=== PATIENT | female | born 1950 | race African-American/Black ===

== ENCOUNTER 2017-06-08 12:42 | Emergency (ER) | payer MEDICAID ==
[~2017-06-08] VITALS: Ht 160 cm; Wt 72.6 kg
[2017-06-08 12:45] VITALS: BP 149/68
--- NOTE | 2017-06-08 13:09 | Emergency Room Report ---
History of Present Illness General Chief Complaint: Dyspnea/Respdistress Source: Patient Present Illness HPI 66 YO Female presents to the ED c/o dry cough and chest congestion x 1 week. Patient reports high-pitched cough with intermittent wheezing. Patient states that she is a current smoker and she has been diagnosed with bronchitis in the past. Patient describes 7/10 in severity generalized rib cage pain that is on both the left and right sides radiating towards the back is exacerbated when she is coughing. Patient states that at one point she was even on the read the once daily. Patient states that she needs a refill of albuterol. Patient reports chills she denies fevers. She reports increased mucus. He denies lower extremity swelling, cardiac history, or significant past medical history such as hypertension, diabetes or hyperlipidemia. Denies high fevers, lethargy, neck stiffness, irritability, dehydration, N/V/D. Denies Palpitations, LOC, AMS , seizures, paresthesias, or changes in Hearing or vision, no Sudden severe MCGILL. Allergies: Coded Allergies: No Known Allergies (Unverified , 06/08/17) Patient History Past Medical History: see triage record Past Surgical History: none Pertinent Family History: none Last Menstrual Period: Post Now: No Immunizations: UTD Reviewed Nursing Documentation: PMH: Agreed, PSxH: Agreed Nursing Documentation-PMH Past Medical History: No Stated History Review of Systems All Other Systems: negative except mentioned in HPI Physical Exam Vital Signs Date Time Temp Pulse Resp B/P (MAP) Pulse Ox O2 Delivery O2 Flow Rate FiO2 06/08/17 12:45 98.6 90 20 149/68 98 Room Air Sp02 EP Interpretation: reviewed, normal General Appearance: no apparent distress, alert, GCS 15, non-toxic Head: normocephalic, atraumatic Eyes: bilateral eye normal inspection, bilateral eye PERRL ENT: hearing grossly normal, normal voice Neck: full range of motion Respiratory: lungs clear, normal breath sounds, no accessory muscle use, speaking full sentences, wheezing - expiratory wheezes, other - chest tenderness is illicited with palpation. Cardiovascular #1: regular rate, rhythm, no edema, normal capillary refill Rectal: deferred Genitourinary: normal inspection Musculoskeletal: back normal, gait/station normal, normal range of motion, non- tender Neurologic: alert, oriented x3, responsive, motor strength/tone normal, sensory intact, speech normal, grossly normal Psychiatric: judgement/insight normal Skin: normal color, no rash, warm/dry, well hydrated Lymphatic: no adenopathy Medical Decision Making PA Attestation Dr. June is my supervising Physician whom patient management has been discussed with. Diagnostic Impression: Primary Impression: Bronchitis ER Course 66 YO Female presents to the ED c/o dry cough and chest congestion x 1 week. Patient reports high-pitched cough with intermittent wheezing. Patient states that she is a current smoker and she has been diagnosed with bronchitis in the past. Patient describes 7/10 in severity generalized rib cage pain that is on both the left and right sides radiating towards the back is exacerbated when she is coughing. Patient states that at one point she was even on the read the once daily. Patient states that she needs a refill of albuterol. Patient reports chills she denies fevers. She reports increased mucus. He denies lower extremity swelling, cardiac history, or significant past medical history such as hypertension, diabetes or hyperlipidemia. Denies high fevers, lethargy, neck stiffness, irritability, dehydration, N/V/D. Denies Palpitations, LOC, AMS , seizures, paresthesias, or changes in Hearing or vision, no Sudden severe MCGILL. Ddx considered but are not limited to URI, pneumonia, PE, strep pharyngitis, meningitis, Bronchitis, CHF just to name a few. Vital signs: Pt.is afebrile VS are WNL H&PE are most consistent with bronchitis, no cardiac RF's and CP is reproducible with palpation. ORDERS: CXR: WNL, no acute disease . ED INTERVENTIONS: -Duo Neb - Albuterol Neb DISCHARGE: At this time pt. is stable for d/c to home. Will provide printed patient care instructions, and any necessary prescriptions. Care plan and follow up instructions have been discussed with the patient prior to discharge. Chest X-Ray Diagnostic Results Chest X-Ray Diagnostic Results : Chest X-Ray Ordered: Yes # of Views/Limited/Complete: 1 View Indication: Shortness of Breath EP Interpretation: Yes PA Xray: Interpretation reviewed, by supervising MD, and agrees with findings. Interpretation: no consolidation, no effusion, no pneumothorax, no acute cardiopulmonary disease Impression: No acute disease Electronically Signed by: Fabiola Cameron PA-C Last Vital Signs Date Time Temp Pulse Resp B/P (MAP) Pulse Ox O2 Delivery O2 Flow Rate FiO2 06/08/17 12:47 90 20 Room Air 06/08/17 12:45 98.6 149/68 98 Disposition: HOME, SELF-CARE Condition: Stable Scripts Guaifenesin (Guaifenesin) 1,200 Mg Tab.er.12h 1200 MG PO BID, #20 TAB Prov: Fabiola Cameron 06/08/17 Prednisone* (PREDNISONE*) 20 Mg Tablet 40 MG ORAL DAILY for 5 Days, #10 TAB Prov: Fabiola Cameron 06/08/17 Codeine/Promethazine Hcl* (PROMETHAZINE-CODEINE SYRUP*) 118 Ml Syrup 5 ML ORAL Q6H Y for For Cough, #118 ML 0 Refills Prov: Fabiola Cameron 06/08/17 Albuterol Sulfate* (ALBUTEROL SULFATE MDI*) 8.5 Gm Hfa.aer.ad 2 PUFF INH Q3H, #1 INH 0 Refills Prov: Fabiola Cameron 06/08/17 Patient Instructions: Acute Bronchitis Additional Instructions: Take medications as directed. Follow up with a Primary Care Provider in 3-5 days, even if your symptoms have resolved. --Please review list of primary care clinics, if you do not already have a primary care provider Return sooner to ED if new symptoms occur, or current symptoms become worse. Do not drink alcohol, drive, or operate heavy machinery while taking Cough Syrup as this may cause drowsiness. - Please note that this Emergency Department Report was dictated using [employer] cleaner technology software, occasionally this can lead to erroneous entry secondary to interpretation by the dictation equipment. Fabiola Cameron Jun 08, 2017 13:09
[2017-06-08] MEDS ORDERED: ALBUTEROL SULF8.5 GM INH (13:20)
[2017-06-08] MEDS ORDERED: Albuterol ud Inhalation HHN ONE ×2 (13:30→14:30)
[2017-06-08] MEDS ORDERED: Ipratropium 0.02% Inh Soln 2.5ml UD HHN ONE (13:30)
[2017-06-08] MEDS ORDERED: PROMETHAZINE-C118 M1 ORAL (14:46)
[2017-06-08] MEDS ORDERED: PREDNISONE20 MG ORAL (14:46)
[2017-06-08] MEDS ORDERED: GUAIFENESIN1200 MG PO (14:46)
--- NOTE | 2017-06-08 14:46 | Diagnostic Imaging Report ---
Indication: Chest pain Technique: XRAY Chest 1v Comparison: None Findings: Heart is within the upper limits for normal size. Mediastinal contours are sharp. Atherosclerotic calcifications noted in the aortic arch. There is slight haziness of the bilateral lower lungs which is thought to be related to attenuation from overlying breast tissue and vascular crowding at the bases. There is no definite focal airspace consolidation. No pleural effusion. No pneumothorax. No acute osseous abnormality seen. Impression: No radiographic evidence of acute cardiopulmonary disease.
[2017-06-08 15:05] VITALS: BP 133/75
== END 2017-06-08 15:05 | disposition home or self-care (01) ==
LOC: EMR 15:02
DX: J40 Bronchitis, not specified as acute or chronic (principal)
CPT/HCPCS: 71045; 94640; 94664; 99284

== ENCOUNTER 2019-06-05 15:51 | Emergency (ER) | payer BC, MEDICARE ==
[~2019-06-05] VITALS: Ht 160 cm; Wt 72.6 kg
[~2019-06-05 15:51] MED LIST: ALBUTEROL SULF8.5 GM INH; GUAIFENESIN1200 MG PO; PREDNISONE20 MG ORAL; PROMETHAZINE-C118 M1 ORAL
[2019-06-05 16:30] VITALS: BP 155/82
[2019-06-05] MEDS ORDERED: Albuterol/Ipratropium 3ml neb HHN ONE ×2 (16:30→17:45)
--- NOTE | 2019-06-05 18:00 | Emergency Room Report ---
History of Present Illness General Chief Complaint: Dyspnea/Respdistress Source: Patient Present Illness HPI 68 YO female presents to the ED c/o 01/06 in severity cough and wheezing x 4 days, Pt. has a hx of COPD, and ran out of her inhaler at home. She reports increase in sputum production she reports chills but denies fevers. Patient states she did not receive this years flu vaccination. Patient denies recent travel or ill contacts. Patient denies sore throat, nasal congestion, rhinorrhea, neck pain/stiffness or headache. Patient denies chest pain or palpitations. Allergies: Coded Allergies: No Known Allergies (Unverified , 06/08/17) Patient History Past Medical History: see triage record Past Surgical History: none Pertinent Family History: none Last Menstrual Period: na Now: No Reviewed Nursing Documentation: PMH: Agreed; PSxH: Agreed Nursing Documentation-PMH Past Medical History: No History, Except For Hx COPD: Yes Review of Systems All Other Systems: negative except mentioned in HPI Physical Exam Vital Signs Date Time Temp Pulse Resp B/P (MAP) Pulse Ox O2 Delivery O2 Flow Rate FiO2 06/05/19 16:06 98.1 75 20 160/81 (107) 97 Room Air 06/05/19 16:34 21 Sp02 EP Interpretation: reviewed, normal General Appearance: no apparent distress, alert, GCS 15, non-toxic Head: normocephalic, atraumatic Eyes: bilateral eye normal inspection, bilateral eye PERRL ENT: hearing grossly normal, normal pharynx, normal voice, uvula midline, moist mucus membranes Neck: full range of motion, no meningismus Respiratory: normal breath sounds, no respiratory distress, no accessory muscle use, speaking full sentences, wheezing, expiration Cardiovascular #1: regular rate, rhythm, no edema Musculoskeletal: normal range of motion, gait/station normal, non-tender Neurologic: alert, motor strength/tone normal, oriented x3, sensory intact, responsive, speech normal Psychiatric: judgement/insight normal Skin: normal color Lymphatic: no adenopathy Medical Decision Making PA Attestation Dr. Mesa is my supervising Physician whom patient management has been discussed with. Diagnostic Impression: Primary Impression: COPD with exacerbation ER Course 68 YO female presents to the ED c/o 01/06 in severity cough and wheezing x 4 days, Pt. has a hx of COPD, and ran out of her inhaler at home. She reports increase in sputum production she reports chills but denies fevers. Patient states she did not receive this years flu vaccination. Patient denies recent travel or ill contacts. Patient denies sore throat, nasal congestion, rhinorrhea, neck pain/stiffness or headache. Patient denies chest pain or palpitations. Ddx considered but are not limited to asthma exacerbation, CHF, URI, pneumonia, PE, strep pharyngitis, meningitis. Vital signs: Pt. is afebrile, VS are WNL H&PE are most consistent with COPD exacerbation due to URI ORDERS: none required at this time, the diagnosis is clinical ED INTERVENTIONS: DuoNEb . x2 - re-examination post nebulized treatment lungs are CTA bilaterally. DISCHARGE: At this time pt. is stable for d/c to home. Will provide printed patient care instructions, and any necessary prescriptions. Care plan and follow up instructions have been discussed with the patient prior to discharge. Last Vital Signs Date Time Temp Pulse Resp B/P (MAP) Pulse Ox O2 Delivery O2 Flow Rate FiO2 06/05/19 17:48 73 20 98 Room Air 21 75 20 98 06/05/19 16:30 98.1 155/82 Disposition: HOME, SELF-CARE Condition: Stable Scripts Albuterol Sulfate* (ALBUTEROL SULFATE MDI*) 8.5 Gm Hfa.aer.ad 2 PUFF INH Q3H, #1 INH 2 Refills Prov: Fabiola Cameron 06/05/19 Levofloxacin* (LEVAQUIN*) 500 Mg Tablet 500 MG ORAL DAILY for 7 Days, #7 TAB Prov: Fabiola Cameron 06/05/19 Codeine/Promethazine Hcl* (PROMETHAZINE-CODEINE SYRUP*) 118 Ml Syrup 5 ML ORAL Q6H PRN for For Cough, #120 ML 0 Refills Prov: Fabiola Cameron 06/05/19 Patient Instructions: Chronic Obstructive Pulmonary Disease Exacerbation Additional Instructions: Take medications as directed. Follow up with a Primary Care Provider in 3-5 days, even if your symptoms have resolved. --Please review list of primary care clinics, if you do not already have a primary care provider Return sooner to ED if new symptoms occur, or current symptoms become worse. Do not drink alcohol, drive, or operate heavy machinery while taking Cough Syrup as this may cause drowsiness. - Please note that this Emergency Department Report was dictated using [employer] lecturer technology software, occasionally this can lead to erroneous entry secondary to interpretation by the dictation equipment. Fabiola Cameron Jun 05, 2019 18:00
[2019-06-05] MEDS ORDERED: LEVAQUIN500 MG ORAL (18:01)
[2019-06-05] MEDS ORDERED: PROMETHAZINE-C118 M1 ORAL (18:01)
[2019-06-05] MEDS ORDERED: ALBUTEROL SULF8.5 GM INH (18:01)
[2019-06-05 18:15] VITALS: BP 152/80
[2019-06-06] MEDS ORDERED: PROMETHAZINE-D118 ML ORAL (14:06)
== END 2019-06-05 18:15 | disposition home or self-care (01) ==
LOC: EMR 18:10
DX: J44.1 Chronic obstructive pulmonary disease with (acute) exacerbation (principal)
CPT/HCPCS: 99284; J7620